=== PATIENT | male | born 1980 | race African-American/Black ===

== ENCOUNTER 2016-10-01 13:26 | Emergency (ER) | payer OTHER ==
[2016-10-01 12:26] LABS: URINE SOURCE CLEAN CATCH
[2016-10-01 12:53] LABS: URINE APPEARANCE CLEAR; URINE BACTERIA AUWI NEG (NEGATIVE); URINE BILIRUBIN NEG (NEG); URINE COLOR YELLOW; URINE GLUCOSE NEG (NEG); URINE KETONE NEG (NEG); URINE LEUKOCYTE ESTERASE NEG (NEG); URINE NITRATE NEG (NEG); URINE PH 7.5 (5-8); URINE PROTEIN 2+ (NEG); URINE SPECIFIC GRAVITY 1.025 (1.003-1.035); URINE SQUAMOUS EPITHELIAL CELL NONE SEEN /[HPF]; URINE UROBILINOGEN 0.2 MG/DL (NEG); UWBCS1 AUWI 0-2 (0-5)
[2016-10-01 12:55] LABS: CULTURE INDICATED? NO; URINE BLOOD 1+ (NEG)
[~2016-10-01 13:26] MED LIST: DOXYCYCLINE PO; DOXYCYCLINE150 MG PO; MOBIC PO; NAPROSYN500 MG PO; NO MEDICATIONS; PEN-VEE K PO; ROBAXIN500 MG PO; VIBRAMYCIN100 M1 PO; VICODIN 5/500 T1 TAB PO
[2016-10-04 16:32] LABS: CHLAMYDIA TRACH Not Detected (Not Detected); N GONOR Not Detected (Not Detected)
== END 2016-10-01 13:35 | disposition home or self-care (01) ==
LOC: CFTX 13:26
PROVIDERS: Emergency Medicine
DX: Z20.2 Contact with and (suspected) exposure to infections with a predominantly sexual mode of transmission (principal); F17.210 Nicotine dependence, cigarettes, uncomplicated
CPT/HCPCS: 81003; 87491; 87591; 96372; 99283; J0696

== ENCOUNTER 2017-04-14 21:43 | Emergency (ER) | payer OTHER ==
[~2017-04-14] VITALS: Ht 172.7 cm; Wt 67.6 kg
[2017-04-14 22:43] LABS: URINE SOURCE CLEAN CATCH
[2017-04-14 22:49] LABS: URINE APPEARANCE CLEAR; URINE BILIRUBIN NEG (NEG); URINE BLOOD NEG (NEG); URINE COLOR YELLOW; URINE GLUCOSE NEG (NORM); URINE KETONE TRACE (NEG); URINE LEUKOCYTE ESTERASE NEG (NEG); URINE NITRATE NEG (NEG); URINE PROTEIN NEG (NEG)
[2017-04-14 22:58] LABS: MICRO INDICATED? NO
[2017-04-16 20:45] LABS: CHLAMYDIA TRACH Not Detected (Not Detected); N GONOR Not Detected (Not Detected)
== END 2017-04-14 23:55 | disposition home or self-care (01) ==
LOC: SED 21:43
PROVIDERS: Nurse Practitioner
DX: A59.9 Trichomoniasis, unspecified (principal); Z20.2 Contact with and (suspected) exposure to infections with a predominantly sexual mode of transmission; F17.210 Nicotine dependence, cigarettes, uncomplicated
CPT/HCPCS: 81003; 87210; 87491; 87591; 96372; 99283; J0696